=== PATIENT | female | born 1955 | race Caucasian/White ===

== ENCOUNTER → 2020-10-31 10:24 | Outpatient (CLI) | payer OTHER, SELFPAY ==
--- NOTE | 2020-10-31 | DI.MG.S_ITS ---
BILATERAL DIGITAL SCREENING MAMMOGRAM 3D/2D WITH CAD: 10/31/2020 CLINICAL: Routine screening. Comparison is made to exams dated: 05/11/2017 mammogram, 03/26/2015 mammogram, and 10/01/2013 mammogram - [facility]. There are scattered fibroglandular elements in both breasts. Current study was also evaluated with a Computer Aided Detection (CAD) system. No significant masses, calcifications, or other findings are seen in either breast. There has been no significant interval change. IMPRESSION: NEGATIVE There is no mammographic evidence of malignancy. A 1 year screening mammogram is recommended. This exam was interpreted at Station ID: [id number]. NOTE: For mammograms, a report in lay terms will be sent to the patient. Approximately 15% of breast malignancies will not be visualized mammographically. In the management of a palpable breast mass, a negative mammogram must not discourage biopsy of a clinically suspicious lesion. Electronically Signed By: Nicolás Blake M.D. [facility] [place]:10/31/2020 13:41:28 letter sent: Normal Exam ACR BI-RADS Category 1: Negative [id number]
== END ==
PROVIDERS: PCP Student in an Organized Health Care Education/Training Program; Referring Provider Student in an Organized Health Care Education/Training Program; Visit Provider Student in an Organized Health Care Education/Training Program
DX: Z12.31 Encounter for screening mammogram for malignant neoplasm of breast (principal)
CPT/HCPCS: 77063; 77067

== ENCOUNTER → 2020-11-10 13:54 | Outpatient (CLI) | payer OTHER, SELFPAY | PROVIDERS: PCP Student in an Organized Health Care Education/Training Program; Referring Provider Student in an Organized Health Care Education/Training Program; Visit Provider Student in an Organized Health Care Education/Training Program | DX: M85.851 Other specified disorders of bone density and structure, right thigh (principal); Z78.0 Asymptomatic menopausal state; Z82.62 Family history of osteoporosis | CPT/HCPCS: 77080 ==

== ENCOUNTER → 2022-08-11 11:42 | Outpatient (CLI) | payer OTHER, SELFPAY ==
--- NOTE | 2022-08-11 | DI.MG.S_ITS ---
BILATERAL DIGITAL SCREENING MAMMOGRAM 3D/2D WITH CAD: 08/11/2022 CLINICAL: Routine screening. Comparison is made to exams dated: 10/31/2020 mammogram, 05/11/2017 mammogram, and 03/26/2015 mammogram - [facility]. There are scattered areas of fibroglandular density in both breasts (category b / 25%-50% glandular tissue). Current study was also evaluated with a Computer Aided Detection (CAD) system. No significant masses, calcifications, or other findings are seen in either breast. There has been no significant interval change. IMPRESSION: NEGATIVE There is no mammographic evidence of malignancy. A 1 year screening mammogram is recommended. Based on the Tyrer Cuzick model (a risk assessment model) the patient's lifetime risk is 7.4% and her 10 year risk is 3.7%. According to the ACR, ACS, and NCCN guidelines, an annual breast MRI exam along with mammogram is recommended if the patient's lifetime risk is 20% or greater. This exam was interpreted at Station ID: [id number]. NOTE: For mammograms, a report in lay terms will be sent to the patient. Approximately 15% of breast malignancies will not be visualized mammographically. In the management of a palpable breast mass, a negative mammogram must not discourage biopsy of a clinically suspicious lesion. Electronically Signed By: Kristen billy/roxana:08/11/2022 14:39:55 letter sent: Normal Exam ACR BI-RADS Category 1: Negative [id number]
== END ==
PROVIDERS: PCP Family Medicine; Referring Provider Family Medicine; Visit Provider Family Medicine
DX: Z12.31 Encounter for screening mammogram for malignant neoplasm of breast (principal)
CPT/HCPCS: 77063; 77067

== ENCOUNTER → 2023-06-03 12:35 | Outpatient (CLI) | payer OTHER, SELFPAY ==
--- NOTE | 2023-06-03 12:38 | DI.RAD.S_ITS ---
Bone Density Report Name: DONALD GARCIA Age: 67 Sex: Female Ethnicity: White Date of : 1955 Indication: osteopenia; Referring Provider: SABINA BECERRA Study: Bone densitometry was performed. Exam Date: June 03, 2023 Accession number: [id number] Bone Density: Region BMD T-score Z-score Classification AP Spine(L1-L4) 1.020 -0.2 1.7 Normal Femoral Neck (Left) 0.622 -2.0 -0.4 Osteopenia Total Hip (Left) 0.825 -1.0 0.4 Normal Femoral Neck (Right) 0.607 -2.2 -0.5 Osteopenia Total Hip (Right) 0.741 -1.6 -0.3 Osteopenia Total Hip Mean 0.783 -1.3 0.1 Osteopenia World Health Organization criteria for BMD impression classify patients as: Normal (T-score at or above -1.0), Osteopenia (T-score between -1.0 and -2.5), or Osteoporosis (T-score at or below -2.5). 10-year Fracture Risk(1): Major Osteoporotic Fracture 12% Hip Fracture 2.2% Reported Risk Factors: [place] (), Neck BMD=0.607, BMI=25.0 (1) FRAX(R) Version 3.08. Fracture probability calculated for an untreated patient. Fracture probability may be lower if the patient has received treatment. Previous Exams: -- Region Exam Age BMD T-score BMD Change BMD Change Date g/cm2 vs Baseline vs Previous -- AP Spine (L1-L4) 06/03/2023 67 1.020 -0.2 -0.076 (-6.9%)# -0.033 (-3.1%)# 11/10/2020 64 1.053 0.1 -0.043 (-3.9%)* -0.053 (-4.8%)* 03/26/2015 59 1.106 0.5 0.011 (1.0%) 0.029 (2.7%)* 01/13/2010 54 1.077 0.3 -0.018 (-1.7%) -0.018 (-1.7%) 05/12/2006 50 1.096 0.4 Total Hip(Left) 06/03/2023 67 0.825 -1.0 -0.124 (-13.0%)# 0.019 (2.4%)# 11/10/2020 64 0.806 -1.1 -0.143 (-15.1%)* -0.068 (-7.8%)* 03/26/2015 59 0.874 -0.6 -0.075 (-7.9%)* -0.055 (-6.0%)* 01/13/2010 54 0.930 -0.1 -0.019 (-2.0%) -0.019 (-2.0%) 05/12/2006 50 0.949 0.1 Total Hip(Right) 06/03/2023 67 0.741 -1.6 -0.160 (-17.8%)# 0.014 (1.9%)# 11/10/2020 64 0.727 -1.8 -0.174 (-19.3%)* -0.076 (-9.5%)* 03/26/2015 59 0.804 -1.1 -0.098 (-10.9%)* -0.061 (-7.1%)* 01/13/2010 54 0.865 -0.6 -0.037 (-4.1%)* -0.037 (-4.1%)* 05/12/2006 50 0.902 -0.3 -- *Denotes significance at 95% confidence level, LSC for AP Spine = 0.022 g/cm2, LSC for Total Hip = 0.027 g/cm2 # Denotes dissimilar scan types or analysis methods Impression: The patient has low bone mass, based on the Right Femoral Neck T-score. The patient has an estimated ten-year risk of hip fracture of 2.2% and an estimated ten-year risk of major fracture of 12%, based on the WHO FRAX algorithm. No significant bone loss was observed. Discussion: BONE DENSITY IS LOW AT ONE OR MORE SKELETAL SITES. This patient's lowest T-score is low at one or more skeletal sites. It meets the World Health Organization's (WHO) criteria for low bone mass (T-score between -1.0 and -2.5). The patient's 10-year risk of fracture as calculated by FRAX is less than the threshold where pharmacological therapy is recommended by the National Osteoporosis Foundation (NOF). However, all treatment decisions require clinical judgment and consideration of individual patient factors, including patient preferences, comorbidities, previous drug use, risk factors not captured in the FRAX model (e.g., frailty, falls, vitamin D deficiency, increased bone turnover, interval significant decline in bone density) and possible under or overestimation of fracture risk by FRAX. The patient should follow a healthful lifestyle (good nutrition with adequate calcium and vitamin D, and appropriate weight-bearing exercise). Follow-Up: Consider repeating this study in 2 to 3 years to reassess this patient's status, or sooner if there is some new clinical indication. Reported by: NAVDEEP ORNELAS M.D. on 06/03/2023 1:17:00 PM.
== END ==
PROVIDERS: PCP Family Medicine; Referring Provider Family Medicine; Visit Provider Family Medicine
DX: M85.89 Other specified disorders of bone density and structure, multiple sites (principal)
CPT/HCPCS: 77080